=== PATIENT | male | born 1985 | race Caucasian/White ===

== ENCOUNTER 2020-09-06 16:16 | Emergency (ER) | payer OTHER ==
[2020-09-06] MEDS ORDERED: CEFTRIAXONE SODIUM 1 GM ONE (16:51)
[2020-09-06] MEDS ORDERED: AZITHROMYCIN 250 MG TABLET PO ONE (16:52)
[2020-09-06] MEDS ORDERED: ACETAMINOPHEN EXTRA STRENGTH 500 MG TABLET ONE (16:58)
[2020-09-06 16:59] LABS: ABG BASE EXCESS -0.9 mmol/L (-2.0-3.0); ABG OXYGEN SATURATION 99.2 % (95.0-99.0); ABG PCO2 19 mmHg (35-48)
[2020-09-06 17:29] LABS: BASOPHILS % (AUTO) 0.1 % (0.0-5.0); EOSINOPHILS % (AUTO) 1.7 % (0.0-8.0); HEMATOCRIT 39.4 % (42-54); LYMPHOCYTES % (AUTO) 13.1 % (21.0-51.0); MEAN CORPUSCULAR HEMOGLOBIN 29.9 pg (27.0-33.0); MEAN CORPUSCULAR HGB CONC 35.8 g/dL (32.0-36.0); MEAN CORPUSCULAR VOLUME 83.7 fL (79-99); MONOCYTES % (AUTO) 6.8 % (3.0-13.0); PLATELET COUNT (AUTO) 207 K/uL (130-400); RED BLOOD CELL COUNT(AUTO) 4.71 MIL/uL (4.50-6.20); RED CELL DISTRIBUTION WIDTH 11.8 % (11.0-15.5); WHITE BLOOD COUNT (AUTO) 7.5 K/uL (4.8-10.8)
[2020-09-06 17:44] LABS: INR 1.1 (0.85-1.15); PROTHROMBIN TIME 11.7 SEC (9.6-11.6)
[2020-09-06 17:44] LABS: APPEARANCE,URINE Clear (CLEAR); BILIRUBIN,URINE Negative (NEGATIVE); COLOR,URINE Dark Yellow (YELLOW); GLUCOSE, URINE (UA) 500 mg/dL (NEGATIVE); KETONES,URINE >=160 mg/dL (NEGATIVE); LEUKOCYTE ESTERASE ,URINE Negative (NEGATIVE); NITRATE,URINE Negative (NEGATIVE); OCCULT BLOOD,URINE Negative (NEGATIVE); PROTEIN,URINE POS 1+ mg/dL (NEGATIVE)
[2020-09-06 17:45] LABS: PARTIAL THROMBOPLASTIN TIME 24.9 SEC (26.3-35.5)
[2020-09-06 17:50] LABS: ALBUMIN 3.4 g/dL (3.5-5.0); BILIRUBIN,TOTAL 0.8 mg/dL (0.2-1.0); CREATININE 0.8 mg/dL (0.5-1.5); POTASSIUM 3.6 mmol/L (3.5-5.1); TOTAL PROTEIN, SERUM 7.6 g/dL (6.0-8.3)
[2020-09-06 17:57] LABS: AMORPHOUS SEDIMENT,UR Moderate /LPF (None Seen); BACTERIA,URINE Rare /HPF (None Seen); MUCUS,URINE Few LPF (None Seen); SQUAMOUS EPITHELIAL CELL,UR Few /HPF (0-2); WBC,URINE 0-1 /HPF (0-1)
[2020-09-06 18:06] LABS: RAPID GROUP A STREP NEGATIVE (NEGATIVE)
[2020-09-06] MEDS ORDERED: INSULIN HUMULIN R 100 UNIT/ML 3ML ONE (18:47)
[2020-09-06 20:49] LABS: ABG BASE EXCESS -3.9 mmol/L (-2.0-3.0); ABG HCO3 18.8 mmol/L (21.0-28.0); ABG OXYGEN SATURATION 97.1 % (95.0-99.0); ABG PCO2 29 mmHg (35-48)
[2020-09-06] MEDS ORDERED: INSULIN HUMULIN 70/30 100 UNIT/ML 3ML SQ ONE (21:23)
== END 2020-09-06 22:02 | disposition home or self-care (01) ==
LOC: EDH 16:16
DX: U07.1 COVID-19 (principal); E86.0 Dehydration; R06.4 Hyperventilation; E11.65 Type 2 diabetes mellitus with hyperglycemia
CPT/HCPCS: 36415; 36600 ×2; 71045; 80053; 81001; 82010; 82550; 82803 ×2; 82948; 83605 ×2; 84484; 85025; 85610; 85730; 87040 ×2; 87426; 87804 ×2; 87880; 93005; 96365; 96366; 96375; 96376; 99285; J0696; J1815 ×2

== ENCOUNTER → 2021-01-16 | Outpatient (CLI) | payer OTHER ==
[2021-01-16 08:41] LABS: CREATININE 0.6 mg/dL (0.5-1.5)
== END | disposition home or self-care (01) ==
LOC: LAB 07:56
PROVIDERS: ATTEND Otolaryngology Plastic Surgery within the Head & Neck
DX: H90.5 Unspecified sensorineural hearing loss (principal)
CPT/HCPCS: 36415; 82565; 84520

== ENCOUNTER → 2021-01-19 | Outpatient (CLI) | payer OTHER ==
[~2021-01-19] MED LIST: GADOTERATE MEGLUMINE 10 MMOL/20 ML VIAL IV ONE
== END | disposition home or self-care (01) ==
LOC: RAH 14:46
PROVIDERS: ATTEND Otolaryngology Plastic Surgery within the Head & Neck
DX: H90.5 Unspecified sensorineural hearing loss (principal)
CPT/HCPCS: 70553; A9575

== ENCOUNTER 2021-04-11 10:04 | Emergency (ER) | payer OTHER ==
[~2021-04-11] VITALS: Ht 180.3 cm; Wt 113.4 kg
[2021-04-11] MEDS ORDERED: IBUP-2070 PO (14:29)
[2021-04-11] MEDS ORDERED: PSEU120T62 PO (14:29)
[2021-04-11] MEDS ORDERED: D-ME118S47 PO (14:29)
== END 2021-04-11 14:41 | disposition home or self-care (01) ==
LOC: EDH 10:04
DX: R05 Cough (principal); Z20.822 Contact with and (suspected) exposure to COVID-19; E11.9 Type 2 diabetes mellitus without complications; Z79.1 Long term (current) use of non-steroidal anti-inflammatories (NSAID); Z98.890 Other specified postprocedural states
CPT/HCPCS: 71045; 87635; 99284; C9803

== ENCOUNTER 2022-09-24 16:32 | Emergency (ER) | payer OTHER ==
[~2022-09-24] VITALS: Ht 180.3 cm; Wt 113.4 kg
[~2022-09-24 16:32] MED LIST changes: +D-ME118S47 PO; -GADOTERATE MEGLUMINE 10 MMOL/20 ML VIAL IV ONE; +IBUP-2070 PO; +PSEU120T62 PO
[2022-09-24 16:34] VITALS: BP 155/87
[2022-09-24] MEDS ORDERED: BENZ200C53 PO (18:37)
[2022-09-24] MEDS ORDERED: OSEL75 PO (18:37)
== END 2022-09-24 18:58 | disposition home or self-care (01) ==
LOC: EDH 16:32
DX: J10.1 Influenza due to other identified influenza virus with other respiratory manifestations (principal); Z20.822 Contact with and (suspected) exposure to COVID-19; R05.9 Cough, unspecified; E11.9 Type 2 diabetes mellitus without complications; Z79.1 Long term (current) use of non-steroidal anti-inflammatories (NSAID); Z79.899 Other long term (current) drug therapy
CPT/HCPCS: 99283; 87635; 87804 ×2; C9803

== ENCOUNTER 2022-10-23 16:12 | Emergency (ER) | payer OTHER ==
[~2022-10-23] VITALS: Ht 180.3 cm; Wt 113.4 kg
[~2022-10-23 16:12] MED LIST changes: +BENZ200C53 PO; +OSEL75 PO
[2022-10-23 16:57] VITALS: BP 138/71
== END 2022-10-23 20:15 | disposition home or self-care (01) ==
LOC: EDH 16:12
DX: B34.9 Viral infection, unspecified (principal); J02.9 Acute pharyngitis, unspecified; E11.9 Type 2 diabetes mellitus without complications; R05.9 Cough, unspecified; R09.89 Other specified symptoms and signs involving the circulatory and respiratory systems; Z20.822 Contact with and (suspected) exposure to COVID-19; Z79.1 Long term (current) use of non-steroidal anti-inflammatories (NSAID)
CPT/HCPCS: 99283; 87635; 87880; 87804 ×2; C9803

== ENCOUNTER 2023-05-15 09:42 | Emergency (ER) | payer OTHER ==
[~2023-05-15] VITALS: Ht 182.9 cm; Wt 113.4 kg
[2023-05-15 10:43] LABS: INFLUENZA TYPE A Negative For Type A (NEGATIVE); INFLUENZA TYPE B Negative For Type B (NEGATIVE)
[2023-05-15 11:02] LABS: RAPID GROUP A STREP negative (NEGATIVE)
[2023-05-15 11:11] LABS: COVID19 (SARS ANTIGEN RAPID) PRESUMPTIVE NEGATIVE (NEGATIVE)
[2023-05-15] MEDS ORDERED: GUAI1TBM19 PO (11:30)
[2023-05-15 12:09] VITALS: BP 134/72; PULSE 78; RESP 22; O2SAT 97
== END 2023-05-15 12:11 | disposition home or self-care (01) ==
LOC: EDH 09:42
DX: B34.9 Viral infection, unspecified (principal); E11.9 Type 2 diabetes mellitus without complications; Z20.822 Contact with and (suspected) exposure to COVID-19; Z79.899 Other long term (current) drug therapy; Z98.890 Other specified postprocedural states
CPT/HCPCS: 87426; 87804; 87880